=== PATIENT | female | born 1990 | race Caucasian/White ===

== ENCOUNTER 2017-01-01 01:44 | Emergency (ER) | payer OTHER ==
[~2017-01-01] VITALS: Ht 177.8 cm; Wt 124.1 kg
[~2017-01-01 01:44] MED LIST: CALC500C3 PO; DOXY30TA; FERR325T51 PO; MTR600X PO; ONDA4TAB46 PO; OXYC5TAB PO; PRENTAB26 PO
[2017-01-01 01:50] VITALS: BP 114/80; PULSE 92; TEMP 36.8; O2SAT 97; Ht 177.8 cm; Wt 124.1 kg
[2017-01-01] MEDS ORDERED: CLAR500T3 PO (02:09)
[2017-01-01] MEDS ORDERED: OXYCODONE IR HOME PACK PO ONE (02:15)
[2017-01-01] MEDS ORDERED: CLARITHROMYCIN 500 MG TAB PO ONE (02:15)
--- NOTE | 2017-01-01 03:34 | EMERGENCY ROOM VISIT NOTE ---
History First contact with patient: 01:55 Chief Complaint: EAR PAIN Stated Complaint: LEFT EAR PAIN/DRAINAGE History of Present Illness The patient is a 26 year old female who presents to the Emergency Room with complaints of left ear pain with fullness is a cold symptoms for the past week. Patient is breast-feeding a 8 months old. Patient denies chest pain, dyspnea , sore throat, abdominal pain, neck stiffness, lightheadedness or dizziness. She is tolerate by mouth fluids and food. Review of Systems See HPI for pertinent positives & negatives. A total of 10 systems reviewed and were otherwise negative. Past Medical/Surgical History Medical Problems: (1) 29 weeks gestation of (2) Bronchitis (3) Gestation period, 37 weeks (4) Lightheaded (5) Lightheaded (6) Migraine (7) Migraine (8) Migraine (9) Nausea/vomiting in (10) Normal labor and delivery (11) Pelvic pain in , antepartum (12) Pneumonia (13) (14) uterine contractions in third trimester, antepartum (15) Sciatic nerve pain (16) Symptoms of dehydration (17) Twin gestation in third trimester (18) Twins Surgical Problems: (1) H/O wisdom tooth extraction (2) Tonsillectomy Family History Diabetes mellitus Hypertension Social History Smoking Status: Former Smoker Alcohol Use: none Drug Use: none Marital Status: single, in relationship Housing Status: lives with significant other Occupation Status: employed Current/Historical Medications Scheduled Clarithromycin (Biaxin), 1 TAB PO BID Allergies Coded Allergies: Cephalosporins (Verified Allergy, Mild, HIVES - TOLERATED KEFLEX BEFORE, ) Amoxicillin (Verified Allergy, Unknown, HIVES, 01/01/17) Penicillins (Verified Allergy, Unknown, HIVES, 01/01/17) Propranolol (Verified Allergy, Unknown, SWELLING OF THROAT, 01/01/17) Physical Exam Vital Signs Date Time Temp Pulse Resp B/P Pulse Ox O2 Delivery O2 Flow Rate FiO2 01/01/17 01:50 36.8 92 16 114/80 97 Room Air Pain Rating (0-10): 0 Physical Exam VITALS: Vitals are noted on the nurse's note and reviewed by myself. Vital signs stable. GENERAL: Pleasant female, in no acute distress, nondiaphoretic, well-developed well-nourished. SKIN: The skin was without rashes, erythema, edema, or bruising. There is no tenting of the skin. Capillary reflex less than 2 seconds. HEAD: Normocephalic atraumatic. EARS: Left tympanic membrane bulging consistent with otitis media, right External auditory canals clear, tympanic membranes pearly dueñas without erythema or effusion no mastoid tenderness bilaterally. EYES: Pupils equal round and reactive to light and accommodation. Conjunctivae without injection, sclerae without icterus. Extraocular movements intact. NOSE: Patent, turbinates without inflammation or discharge. No sinus tenderness. MOUTH: Mucous membranes moist. Pharynx without erythema or exudate. Uvula midline. Airway patent. Tongue does not deviate. NECK: Supple without nuchal rigidity. No lymphadenopathy. No thyromegaly. Cervical spine is nontender. No JVD. HEART: Regular rate and rhythm without murmurs gallops or rubs. LUNGS: Clear to auscultation bilaterally without wheezes, rales or rhonchi. No dullness to percussion. No retractions or accessory muscle use. ABDOMEN: Positive bowel sounds x 4. Normal tympanic percussion. Soft, nontender, without masses or organomegaly. Lynne sign negative. No guarding or rebound tenderness. MUSCULOSKELETAL: No muscle atrophy, erythema, or edema noted. NEURO: Patient was alert and oriented to person place and time. Normal sensation to light and sharp touch. No focal neurological deficits. Medical Decision & Procedures Medications Administered Medications (Trade) Dose Ordered Sig/Giancarlo Route Start Time Stop Time Status Last Admin Dose Admin Oxycodone HCl (Roxicodone Immediate Rel 5MG Home Pack) 1 homepack UD ONCE PO 01/01/17 02:15 01/01/17 02:16 DC 01/01/17 02:14 1 HOMEPACK Clarithromycin (Biaxin Tab) 1,000 mg NOW ONCE PO 01/01/17 02:15 01/01/17 02:16 DC 01/01/17 02:13 1,000 MG ED Course Prior records reviewed and summarized as above. Triage Nursing notes reviewed. The patient's history was concerning for cold symptoms with ear pain. Differential diagnosis: Etiologies such as sinusitis, otitis, pharyngitis, pneumonia, meningitis, mastoiditis, influenza as well as others were entertained.. Physical examination: The physical examination was consistent with otitis ER treatment provided: Clarithromycin On reassessment the patient felt better. Diagnostics interpreted by me: Deferred Consultation: A consultation was placed with the pharmacist, Marleen. The case was discussed and diagnostics were reviewed. She states it is safe to prescribe clarithromycin to the mother as less than 1% of this is transmitted to the breast milk. This appears to be otitis. Patient was started on antibiotics. She is advised to follow-up with family care in a few days or here in the ER sooner for high fevers, lethargy, neck stiffness, confusion, worsening signs or symptoms or as needed. Patient no signs of mastoiditis or meningitis on exam. She is well- appearing. By the evaluation outlined above emergent etiologies such as PNA, mastoiditis as well as others were deemed relatively unlikely. The pt informed about the findings as listed above. All questions were answered and pleased with the treatment. Return instructions were outlined and the patient was discharged in stable condition. Outpatient prescription management: Clarithromycin Referral: The patient was referred back to primary care physician for follow-up in 2 to 3 days for a recheck of the current condition. Medical Decision As above Impression Primary Impression: Left otitis media Departure Information Dispostion Home / Self-Care Condition GOOD Prescriptions Clarithromycin (BIAXIN) 500 Mg Tab 1 TAB PO BID for 10 Days, #20 TAB Prov: Savanna Patel ., GABBIE 01/01/17 Forms WORK / SCHOOL INSTRUCTIONS, HOME CARE DOCUMENTATION FORM, IMPORTANT VISIT INFORMATION Patient Instructions My [facility], ED Otitis Media Abx Tx Additional Instructions Clarithromycin 500 m tablet twice a day for 10 days.Any medication can cause an allergic reaction, stop the pills immediately and return to the ER for rash, hives, breathing difficulties, or swelling. Oxycodone (OxyIR) 5mg: Take 1-2 pills every four hours for breakthrough pain. Avoid alcohol, operating machinery or dangerous equipment, working on ladders or roofs, DRIVING, or situations where being under the influence may be dangerous. It is recommended to use an [id number] stool softener such as Colace, 100mg twice daily while taking this medication to avoid constipation. Only take this for severe pain at night. This can make your child sleepy and is transmitted in the breast milk. Acetaminophen(Tylenol) may be used for fever or pain. Use 1000mg every six hours as needed. Avoid using more than 3000mg in a 24 hour period. Rest and drink plenty of fluids. Controlling your fever with Tylenol and Ibuprofen as above will make you feel better. Wash your hands after nose blowing, sneezing, or coughing. Most germs are spread through contact, therefore improper hygiene may result in your close contacts and loved ones becoming ill just like you. Continue current medications. Return to the ER for severe headache, neck stiffness, chest pain, difficulty breathing, fevers, vomiting, worsening of your condition, or as needed. Follow up with your primary physician this week for a recheck of your current condition. Problem Qualifiers Primary Impression: Left otitis media Otitis media type: suppurative Chronicity: acute Recurrence: not specified as recurrent Spontaneous tympanic membrane rupture: without spontaneous rupture Qualified Codes: H66.002 - Acute suppurative otitis media without spontaneous rupture of ear drum, left ear
== END 2017-01-01 02:25 | disposition home or self-care (01) ==
LOC: C.EDB 01:45 → C.EDA 02:25
DX: H92.02 Otalgia, left ear (principal); Z87.891 Personal history of nicotine dependence; Z88.0 Allergy status to penicillin; Z88.1 Allergy status to other antibiotic agents; Z88.8 Allergy status to other drugs, medicaments and biological substances

== ENCOUNTER 2017-01-19 21:44 | Emergency (ER) | payer OTHER ==
[~2017-01-19] VITALS: Ht 177.8 cm; Wt 125.0 kg
[2017-01-19 21:47] VITALS: TEMP 37.1; Ht 177.8 cm; Wt 125.0 kg
[2017-01-19] MEDS ORDERED: IBUPROFEN 600 MG TAB PO STA (21:54)
--- NOTE | 2017-01-19 21:56 | EMERGENCY ROOM VISIT NOTE ---
ED Visit Note First contact with patient: 21:51 CHIEF COMPLAINT: Ankle pain HISTORY OF PRESENT ILLNESS: This 26-year-old female patient presents to the emergency department ambulatory after sustaining an injury to the left ankle and foot with a twisting, inversion motion when she slipped going down her basement stairs. Complains of moderate swelling and pain. The patient complains of pain along the outside of the ankle. The patient does have pain of the foot. The patient rates the pain as sharp and 8/10. There was no audible pop. The patient is non-able to bear weight on the foot. Constant pain , worse with movement, weight bearing, and the dependent position. No knee pain , the patient is able to move their toes. No numbness or weakness of the foot, no laceration. The patient has had a previous injury to this ankle. The patient has taken nothing for the pain. The patient denies any other injury. REVIEW OF SYSTEMS: A 6 system review of systems was completed with positives and pertinent negatives listed in the HPI. ALLERGIES: Amoxicillin, cephalosporins, propanolol MEDICATIONS: Patient denies PMH: Patient denies SOCIAL HISTORY: The patient does not smoke. She lives locally PHYSICAL EXAM: Vital Signs: Reviewed Nurse's notes, vital signs stable. GENERAL : This is a 26-year-old female, no acute distress, but appears in pain, well- developed, well-nourished. MENTAL STATUS: Alert, oriented to person place and time, and cooperative. MUSCULOSKELETAL: The left ankle is swollen and tender over the lateral malleolus, but the skin is intact and there is no ligamentous instability. There is moderate fifth metatarsal tenderness. There is no tenderness over the rest of the foot. There is no calf or tibia/fibular tenderness. There is no visual deformity. The foot and toes are warm and well- perfused. Dorsalis pedis pulse 2+. Sensation to pain and light touch is intact. Capillary refill less than 2 seconds. EMERGENCY DEPARTMENT COURSE: I examined the patient. She was given 600 mg oral ibuprofen. X-rays of the left foot and ankle were reviewed by myself and read by radiology and reveal no fracture or dislocation. A postop shoe splint and Brian wrap were applied to the ankle under my direction and the position was satisfactory. Neurovascular status was rechecked and intact. The patient was instructed on the use of crutches. The patient was discharged home in good condition. LEFT ANKLE 3 VIEWS CLINICAL HISTORY: Fall with left ankle pain. FINDINGS: 3 views of the left ankle are compared to study dated 08/15/2008. The skeletal structures are well mineralized. No fracture is seen. The ankle mortise is intact. There is no joint effusion. The overlying soft tissues are within normal limits. IMPRESSION: Unremarkable radiographic assessment of the left ankle. LEFT FOOT 3 VIEWS CLINICAL HISTORY: Fall with left foot pain. FINDINGS: 3 views of left foot are compared to study dated 03/19/2015. The skeletal structures are well mineralized. No fracture is seen. The joint spaces of the foot are well-maintained. The overlying soft tissues are within normal limits. IMPRESSION: Unremarkable radiographic assessment of the left foot. Problem List Medical Problems: (1) 29 weeks gestation of Status: Resolved (2) Bronchitis Status: Resolved (3) Gestation period, 37 weeks Status: Resolved (4) Lightheaded Status: Resolved (5) Lightheaded Status: Resolved (6) Migraine Status: Chronic (7) Migraine Status: Resolved (8) Migraine Status: Resolved (9) Nausea/vomiting in Status: Resolved (10) Normal labor and delivery Status: Resolved (11) Pelvic pain in , antepartum Status: Resolved (12) Pneumonia Status: Resolved (13) Status: Resolved (14) Sciatic nerve pain Status: Resolved (15) Symptoms of dehydration Status: Resolved Surgical Problems: (1) H/O wisdom tooth extraction Status: Resolved (2) Tonsillectomy Status: Resolved Current/Historical Medications No Active Prescriptions or Reported Meds Allergies Coded Allergies: Cephalosporins (Verified Allergy, Mild, HIVES - TOLERATED KEFLEX BEFORE, ) Amoxicillin (Verified Allergy, Unknown, HIVES, 01/01/17) Penicillins (Verified Allergy, Unknown, HIVES, 01/01/17) Propranolol (Verified Allergy, Unknown, SWELLING OF THROAT, 01/01/17) Vital Signs Date Time Temp Pulse Resp B/P Pulse Ox O2 Delivery O2 Flow Rate FiO2 01/19/17 22:41 86 18 146/75 98 01/19/17 21:47 37.1 90 16 141/92 99 Room Air Medications Administered Medications (Trade) Dose Ordered Sig/Giancarlo Route Start Time Stop Time Status Last Admin Dose Admin Ibuprofen (Motrin Tab) 600 mg NOW STAT PO 01/19/17 21:54 01/19/17 21:55 DC 01/19/17 22:12 600 MG Departure Information Impression Primary Impression: Foot sprain Additional Impression: Ankle sprain Dispostion Home / Self-Care Condition GOOD Prescriptions No Active Prescriptions or Reported Meds Referrals No Doctor, Assigned (PCP) Chencho Santamaria D.O. Patient Instructions Ankle Sprain, ED Sprain Foot, My [facility] Additional Instructions Ice and elevate ankle for swelling and pain. Use your ankle support, post op shoe and crutches for 2 days then until you can walk without limping. Ibuprofen 600 mg and Tylenol 1000 mg every 6 hrs for pain. No more than 4 g of Tylenol in 24 hours. If ankle has not improved within 5-7 days, follow-up family doctor or orthopedic surgeon for further reevaluation. Problem Qualifiers Primary Impression: Foot sprain Encounter type: initial encounter Laterality: left Qualified Codes: S93.602A - Unspecified sprain of left foot, initial encounter Additional Impression: Ankle sprain Encounter type: initial encounter Involved ligament of ankle: unspecified ligament Laterality: left Qualified Codes: S93.402A - Sprain of unspecified ligament of left ankle, initial encounter
--- NOTE | 2017-01-19 22:19 | DIAGNOSTIC IMAGING REPORT ---
LEFT FOOT 3 VIEWS CLINICAL HISTORY: Fall with left foot pain. FINDINGS: 3 views of left foot are compared to study dated 03/19/2015. The skeletal structures are well mineralized. No fracture is seen. The joint spaces of the foot are well-maintained. The overlying soft tissues are within normal limits. IMPRESSION: Unremarkable radiographic assessment of the left foot. Electronically signed by: Daryn Mora M.D. 01/19/2017 10:18 PM Dictated Date/Time: 01/19/2017 10:16 PM
--- NOTE | 2017-01-19 22:20 | DIAGNOSTIC IMAGING REPORT ---
LEFT ANKLE 3 VIEWS CLINICAL HISTORY: Fall with left ankle pain. FINDINGS: 3 views of the left ankle are compared to study dated 08/15/2008. The skeletal structures are well mineralized. No fracture is seen. The ankle mortise is intact. There is no joint effusion. The overlying soft tissues are within normal limits. IMPRESSION: Unremarkable radiographic assessment of the left ankle. Electronically signed by: Daryn Mora M.D. 01/19/2017 10:19 PM Dictated Date/Time: 01/19/2017 10:18 PM
[2017-01-19 22:41] VITALS: BP 146/75; PULSE 86; O2SAT 98
== END 2017-01-19 22:42 | disposition home or self-care (01) ==
LOC: C.EDB 21:45 → C.EDD 22:42
DX: S93.602A Unspecified sprain of left foot, initial encounter (principal); S93.402A Sprain of unspecified ligament of left ankle, initial encounter; X50.1XXA Overexertion from prolonged static or awkward postures, initial encounter; W18.43XA Slipping, tripping and stumbling without falling due to stepping from one level to another, initial encounter; Z87.01 Personal history of pneumonia (recurrent); Z90.89 Acquired absence of other organs; Z98.818 Other dental procedure status

== ENCOUNTER 2017-03-15 23:00 | Emergency (ER) | payer OTHER ==
[~2017-03-15] VITALS: Ht 180.3 cm; Wt 125.4 kg
[2017-03-15 23:02] VITALS: TEMP 36.6; Ht 180.3 cm; Wt 125.4 kg
[2017-03-15] MEDS ORDERED: KETOROLAC TROMETHAMINE 60 MG/2 ML VIAL IM STA (23:24)
[2017-03-16 00:02] LABS: URINE APPEARANCE CLEAR (CLEAR); URINE BILIRUBIN NEG (NEG); URINE COLOR ORANGE; URINE EPITHELIAL CELL AUTO 20-30 /lpf (0-5); URINE NITRITE NEG (NEG); URINE PH 6.5 (4.5-7.5); URINE SPECIFIC GRAVITY 1.005 (1.000-1.030); UROBILINOGEN NEG (NEG); ZZUR CULT IF INDIC CLEAN CATCH YES
[2017-03-16 00:04] LABS: MANUAL MICROSCOPIC REQUIRED? NO; REVIEW REQ? YES
[2017-03-16 01:58] VITALS: BP 99/66; PULSE 70; O2SAT 99
--- NOTE | 2017-03-16 06:27 | DIAGNOSTIC IMAGING REPORT ---
EXAMINATION: PELVIC ULTRASOUND (transabdominal and endovaginal scanning) CLINICAL HISTORY: Vaginal bleeding and cramping. COMPARISON STUDY: None FINDINGS: The uterus measured 9.3 x 4.5 x 5.1 cm. The endometrial stripe measured 17 mm. An IUD is visualized.. The right ovary measured 42 x 26 x 35 mm.. The left ovary measured 51 x 26 x 29 mm.. Multiple peripheral ovarian follicles are visualized bilaterally. This a nonspecific appearance but this finding has been reported in polycystic ovarian syndrome. There is no ultrasonographic evidence of ovarian torsion. It should be noted that ovarian torsion can be present with normal Doppler ultrasonographic findings. There was no evidence of pathologic free pelvic fluid. IMPRESSION: 1. IUD within the uterus 2. Multiple peripheral ovarian follicles. Electronically signed by: Rito Leal M.D. 03/16/2017 6:26 AM Dictated Date/Time: 03/16/2017 6:24 AM
--- NOTE | 2017-03-16 07:48 | EMERGENCY ROOM VISIT NOTE ---
History First contact with patient: 23:11 Chief Complaint: ED VAG BLEEDING Stated Complaint: EXCESSIVE MENSTRAL BLEEDING, CRAMPS History of Present Illness The patient is a 26 year old female who presents to the Emergency Room with complaints of vaginal bleeding that has worsened today. The patient states that she has been spotting for the past 6 or 7 days, and now has more significant bleeding. She states that she has gone through 2 tampons and 2 pads over the past 2 hours. She does have some lower abdominal cramping. The patient has an IUD and is concerned that maybe misplaced. She does not believe that she is because of the IUD. She has not had fever or chills. She should be on her menses, but this feels different from normal. She rates her discomfort a 4/10. Review of Systems More than 10 systems were reviewed and otherwise negative with the exception of history of present illness. Past Medical/Surgical History Medical Problems: (1) 29 weeks gestation of (2) Bronchitis (3) Gestation period, 37 weeks (4) Lightheaded (5) Lightheaded (6) Migraine (7) Migraine (8) Migraine (9) Nausea/vomiting in (10) Normal labor and delivery (11) Pelvic pain in , antepartum (12) Pneumonia (13) (14) uterine contractions in third trimester, antepartum (15) Sciatic nerve pain (16) Symptoms of dehydration (17) Twin gestation in third trimester (18) Twins Surgical Problems: (1) H/O wisdom tooth extraction (2) Tonsillectomy Family History Diabetes mellitus Hypertension Social History Smoking Status: Former Smoker Alcohol Use: none Drug Use: none Marital Status: single, in relationship Housing Status: lives with significant other Occupation Status: employed Current/Historical Medications No Active Prescriptions or Reported Meds Allergies Coded Allergies: Cephalosporins (Verified Allergy, Mild, HIVES - TOLERATED KEFLEX BEFORE, ) Amoxicillin (Verified Allergy, Unknown, HIVES, 03/15/17) Penicillins (Verified Allergy, Unknown, HIVES, 03/15/17) Propranolol (Verified Allergy, Unknown, SWELLING OF THROAT, 03/15/17) Physical Exam Vital Signs Date Time Temp Pulse Resp B/P Pulse Ox O2 Delivery O2 Flow Rate FiO2 03/16/17 01:58 70 18 99/66 99 03/16/17 00:31 50 16 127/66 99 Room Air 5/6/17 23:02 36.6 73 16 138/95 95 Room Air Pain Rating (0-10): 0 Physical Exam VITALS: Vitals are noted on the nurse's note and reviewed by myself. Vital signs stable. GENERAL: Well-developed, well-nourished, white female, who is in no acute distress and resting comfortably. Patient is cooperative with the examination. HEAD: Normocephalic atraumatic. HEART: Regular rate and rhythm without murmurs gallops or rubs. LUNGS: Clear to auscultation bilaterally without wheezes, rales or rhonchi. No retractions or accessory muscle use. ABDOMEN: Positive normal bowel sounds x 4. Soft, nontender, without masses or organomegaly. No guarding or rebound tenderness. MUSCULOSKELETAL: No muscle atrophy, erythema, or edema noted. Full range of motion without joint tenderness in all extremities. Medical Decision & Procedures ER Provider Diagnostic Interpretation: EXAMINATION: PELVIC ULTRASOUND (transabdominal and endovaginal scanning) CLINICAL HISTORY: Vaginal bleeding and cramping. COMPARISON STUDY: None FINDINGS: The uterus measured 9.3 x 4.5 x 5.1 cm. The endometrial stripe measured 17 mm. An IUD is visualized.. The right ovary measured 42 x 26 x 35 mm.. The left ovary measured 51 x 26 x 29 mm.. Multiple peripheral ovarian follicles are visualized bilaterally. This a nonspecific appearance but this finding has been reported in polycystic ovarian syndrome. There is no ultrasonographic evidence of ovarian torsion. It should be noted that ovarian torsion can be present with normal Doppler ultrasonographic findings. There was no evidence of pathologic free pelvic fluid. IMPRESSION: 1. IUD within the uterus 2. Multiple peripheral ovarian follicles. Laboratory Results Test 03/15/17 23:37 Urine Color ORANGE Urine Appearance CLEAR (CLEAR) Urine pH 6.5 (4.5-7.5) Urine Specific [place] 1.005 (1.000-1.030) Urine Protein NEG (NEG) Urine Glucose (UA) NEG (NEG) Urine Ketones NEG (NEG) Urine Occult Blood 3+ (NEG) Urine Nitrite NEG (NEG) Urine Bilirubin NEG (NEG) Urine Urobilinogen NEG (NEG) Urine Leukocyte Esterase NEG (NEG) Urine WBC (Auto) 1-5 /hpf (0-5) Urine RBC (Auto) >30 /hpf (0-4) Urine Hyaline Casts (Auto) 0 /lpf (0-5) Urine Epithelial Cells (Auto) 20-30 /lpf (0-5) Urine Bacteria (Auto) NEG (NEG) Urine Yeast (Auto) (NONE PRSENT) Urine Test NEG (NEG) Medications Administered Medications (Trade) Dose Ordered Sig/Giancarlo Route Start Time Stop Time Status Last Admin Dose Admin Ketorolac Tromethamine (Toradol Inj) 60 mg NOW STAT IM 03/15/17 23:24 03/15/17 23:25 DC 03/15/17 23:45 60 MG ED Course Physical exam and history were performed. Nursing notes and EMR were reviewed. Patient appears to have vaginal bleeding that is more severe over the past 2 hours. She is not taking anything at home for her discomfort, and is concerned about her ID. Urine was collected, and was negative. The patient was given 60 mg IM Toradol. A pelvic ultrasound was performed and does show IUD an anatomic position. There is no other significant findings on ultrasound. Overall the patient appears well for discharge home. I suspect that her symptoms are related to a heavier than normal menses. The patient should follow with her VOICE AND DATA TECHNICIAN for further care and management. She was otherwise invited back to the ER with any new, worsening, or concerning symptoms. The chart was completed utilizing [employer] Voice Recognition Software. Grammatical errors, random word insertions, pronoun errors, and incomplete sentences are an occasional consequence of this system due to software limitations, ambient noise, and hardware issues. Any formal questions or concerns about the content, text, or information contained within the body of this dictation should be directly addressed to the provider for clarification. . Medical Decision Differential diagnosis: Etiologies such as ectopic , dysfunction uterine bleeding, bleeding dyscrasia, trauma, infection, as well as others were entertained. Impression Primary Impression: Vaginal bleeding Departure Information Dispostion Home / Self-Care Condition GOOD Prescriptions No Active Prescriptions or Reported Meds Forms HOME CARE DOCUMENTATION FORM, IMPORTANT VISIT INFORMATION Patient Instructions My [facility] Additional Instructions You were seen and evaluated today on an emergency basis only. This is not a substitute for, or an effort to provide, complete comprehensive medical care. It is not possible to recognize and treat all injuries or illnesses in a single emergency department visit. For this reason it is recommended that you followup with your VOICE AND DATA TECHNICIAN next week for ongoing care and evaluation. For baseline pain relief you may alternate ibuprofen and acetaminophen every 4 hours for pain control. Take 600 mg ibuprofen (Advil) and then 4 hours later take 1000 mg acetaminophen (Tylenol). Do not take more than 3000 mg acetaminophen in a single day. You are welcome to return to the emergency department anytime with new, worsening, or concerning symptoms.
== END 2017-03-16 01:59 | disposition home or self-care (01) ==
LOC: C.EDB 23:01
DX: N93.9 Abnormal uterine and vaginal bleeding, unspecified (principal); Z97.5 Presence of (intrauterine) contraceptive device; Z87.891 Personal history of nicotine dependence; Z90.49 Acquired absence of other specified parts of digestive tract; Z88.0 Allergy status to penicillin; Z88.1 Allergy status to other antibiotic agents; Z88.8 Allergy status to other drugs, medicaments and biological substances; Z83.3 Family history of diabetes mellitus; Z82.49 Family history of ischemic heart disease and other diseases of the circulatory system

== ENCOUNTER → 2018-05-25 | Outpatient (CLI) | payer OTHER ==
--- NOTE | 2018-07-03 08:26 | CODING QUERY NO DIAGNOSIS ---
TREATMENT RENDERED WITHOUT A DIAGNOSIS To promote full compliance with coding requirements relating to patient care, physician participation is requested in all cases of police guard uncertainty. Please assist us with providing a diagnosis/symptom for the test(s) below: A diagnosis/symptom was not documented on your Order. A valid diagnosis/symptom is required to bill all insurances. Please remember that we are unable to code a diagnosis of rule out, probable, possible, questionable, or suspected. Tests that require a diagnosis: DOS: 05/25/18 * CHLAM AND GC RNA DIAGNOSIS: Provider Signature: Date: Thank you Valeri De Paz [employer] Once completed, please kindly fax back to [phone] For questions please call [phone]
== END | disposition home or self-care (01) ==
LOC: C.LABSPEC 17:04 → EDSTATUS 06-25 12:57
PROVIDERS: ATTEND Obstetrics & Gynecology Gynecology
DX: Z11.3 Encounter for screening for infections with a predominantly sexual mode of transmission (principal)

== ENCOUNTER → 2018-05-25 | Outpatient (CLI) | payer OTHER ==
--- NOTE | 2018-07-03 08:29 | CODING QUERY NO DIAGNOSIS ---
TREATMENT RENDERED WITHOUT A DIAGNOSIS To promote full compliance with coding requirements relating to patient care, physician participation is requested in all cases of medical biller/coder uncertainty. Please assist us with providing a diagnosis/symptom for the test(s) below: A diagnosis/symptom was not documented on your Order. A valid diagnosis/symptom is required to bill all insurances. Please remember that we are unable to code a diagnosis of rule out, probable, possible, questionable, or suspected. Tests that require a diagnosis: DOS: 05/25/18 * THINPREP PAP TEST DIAGNOSIS: Provider Signature: Date: Thank you Valeri De Paz [employer] Once completed, please kindly fax back to [phone] For questions please call [phone]
== END | disposition home or self-care (01) ==
LOC: C.PAPS 17:29 → EDSTATUS 06-25 12:46
PROVIDERS: ATTEND Obstetrics & Gynecology Gynecology
DX: Z12.4 Encounter for screening for malignant neoplasm of cervix (principal)

== ENCOUNTER 2023-12-26 18:43 | Inpatient (IN) ==
[2023-12-26] MEDS ORDERED: LIDOCAINE 1% LOCAL 20 ML VIAL INFIL PRN (18:59)
--- NOTE | 2023-12-26 19:06 | History & Physical Report ---
Date of Service December 26, 2023 Assessment & Plan (1) History of section: (2) Active labor at term: Plan: 33-year-old -0-1-3, set of twins, history of prior , presenting with contractions, in active labor and desires TOLAC/, Vital signs stable afebrile, heart rate reassuring, GBS negative, Understands risks and benefits and signed informed consent, Patient desires AROM before epidural, Plan to admit, monitor, labs, IV fluids and then AROM per patient request, All questions were answered. (3) Patient desires vaginal after section (): History of Present Illness Primary Care Provider: Erin Pearson PA-C Patient is a 33-year-old -0-1-3, set of twins, history of prior , desires , at 40 wks of gestation who has been feeling contractions since 4 pm this afternoon. She was in the office on December 24 when her membranes were swiped. Contractions been every 2 to 3 minutes, lasting about 1 minute and very painful. She denies leakage of fluid or vaginal bleeding. She reports good movements. Her has been complicated by, 1. History of prior for twins in 2016, desires TOLAC/, 2. Obesity during , 3. Clomid , 4. history of hyperemesis gravidarum during this , She has signed an informed consent in the office for TOLAC/ versus repeat . She understand the risk of uterine rupture, intra-abdominal bleeding, stress, emergency to save the baby and were scenario demise. We gave her another consent of this hospital with the risks and benefits of both and she signed informed consent and desires to have TOLAC/ . Allergies Allergy/AdvReac Type Severity Reaction Status Date / Time propranolol Allergy Severe SWELLING Verified 07/02/23 12:59 OF THROAT amoxicillin Allergy Intermediate HIVES Verified 07/02/23 12:59 Penicillins Allergy Intermediate HIVES Verified 07/02/23 12:59 Cephalosporins Allergy Mild HIVES - Verified 07/02/23 12:59 TOLERATED KEFLEX BEFORE clindamycin Allergy Mild Rash Verified 12/22/23 17:18 Home Medications Medication Instructions Recorded Confirmed Type vit no.95-ferrous 1 tab PO HS 05/09/23 07/02/23 History fumarate 28 mg-folic acid 800 mcg tablet () montelukast 10 mg tablet 10 mg PO HS 06/09/23 12/22/23 History ondansetron 4 mg disintegrating 4 mg PO Q4H PRN nausea and 06/09/23 12/22/23 Rx tablet vomiting 0 days #10 tabs omeprazole 40 mg capsule,delayed 40 mg PO DAILY 12/22/23 12/22/23 History release sertraline 25 mg tablet (Zoloft) 25 mg PO DAILY 12/22/23 12/22/23 History sertraline 50 mg tablet (Zoloft) 50 mg PO DAILY 12/22/23 12/22/23 History Patient History Medical History GERD (gastroesophageal reflux disease) Surgical History History of section Family History Other Family history non-contributory Social History Smoking Status: Former smoker Second Hand Exposure: No; Do You Dip or Chew Tobacco: No; Hx Alcohol Use: No Hx Substance Use: No Preferred Language: Korean Communication Ability: Effective Visual Impairment: No Limitations Hearing Ability: Normal Landcare Officer Required: No Beliefs That Will Affect Care: None marital status: Current Living Situation: Spouse and Family Current Living Situation Comment: , three children, grandfather Feels Safe at Home: Yes Assistive Devices: None OB History She had primary in 2016 for twins at 38 weeks, no complications, She had a vaginal in 2013, 7 pounds 13 ounce baby, no complications, She had 1 SAB before that. 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 Review of Systems as per Subjective / HPI Physical Exam Constitutional: WD/WN, vitals as above well developed, well nourished, + acute distress (With contractions) and + obese Gastrointestinal (Abdomen): normal bowel sounds, soft, nontender, no hepatosplenomegaly (Gravid) Genitourinary: normal external appearance OB Exam Abdomen: + vertex Manual OB Exam: + cervical dilation 4 cm, + cervical effacement 70% and + station -2 OB Exam Monitor Tracing: + external uterine monitor used and + category I Results & Data Vital Signs (Past 12 Hours) Vital Signs Temp Pulse Resp BP 12/26/23 18:56 90 141/84 H 12/26/23 18:50 16 12/26/23 18:50 36.7 C 16
[2023-12-26 19:23] LABS: Hematocrit (blood only) 40.7 % (37.0-47.0); Hemoglobin 13.9 g/dl (12.0-16.0); Mean Corpuscular Hemoglobin 29.1 pg (25.0-34.0); Mean Corpuscular Hgb Conc 34.2 g/dL (32.0-36.0); Mean Corpuscular Volume 85.1 fL (80.0-100.0); Mean Platelet Volume 10.4 fL (9.4-12.4); Platelet Count 193 K/uL (130-400); RDW Coefficient of Variation 13.4 % (11.5-14.5); RDW Standard Deviation 41.3 fL (36.4-46.3); Red Blood Count 4.78 M/uL (4.20-5.40); White Blood Count 15.07 K/ul (4.8-10.8)
[2023-12-26] MEDS: LACTATED RINGER'S 1,000 ML IV PRN (19:25)
[2023-12-26 19:52] LABS: Albumin Level 3.5 gm/dl (3.4-5.0); Bilirubin,Total 0.4 mg/dl (0.2-1.0); Calcium 9.2 mg/dl (8.6-10.3); Potassium 3.6 mmol/L (3.5-5.1)
[2023-12-26 19:58] LABS: BUN Creatinine Ratio 15.5 (10-20); Creatinine Clr Calc Pharmacy 170.5 ml/min; Est GFR (African American) 131.5 ml/min; Est GFR (Non-African American) 113.5 ml/min; Globulin 3.5 gm/dl (2.5-4.0)
[2023-12-26] MEDS ORDERED: diphenhydrAMINE 50 MG/ML VIAL IV PRN (20:00)
[2023-12-26] MEDS ORDERED: ePHEDrine sulfate 50 MG/ML AMP IV PRN (20:00)
[2023-12-26] MEDS ORDERED: BUPIVACAINE 0.25% PF 30 ML VIAL EPI PRN (20:00)
[2023-12-26] MEDS ORDERED: fentANYL 2 MCG/ML BUPIVacaine 0.125%-NSS 100ML BAG EPI PRN (20:00)
[2023-12-26] MEDS ORDERED: NALOXONE HCL 1 MG in SODIUM CHLORIDE 0.9% 1,000 ML IV PRN (20:00)
[2023-12-26] MEDS ORDERED: NALOXONE HCL 0.4 MG/1 ML VIAL/CARP IV PRN (20:00)
[2023-12-26] MEDS ORDERED: NALBUPHINE HCL 5 MG in SYRINGE 0 ML IV PRN (20:00)
[2023-12-26] MEDS ORDERED: ROPIVACAINE 0.5% PF 5 MG/ML 20 ML VIAL EPI PRN (20:00)
[2023-12-26] MEDS ORDERED: SODIUM CHLORIDE 0.9% PF INJ 10 ML VIAL EPI PRN (20:00)
[2023-12-26] MEDS ORDERED: fentaNYL citrate PF 100 MCG/2 ML VIAL EPI PRN (20:00)
[2023-12-26] MEDS ORDERED: LIDOCAINE 2% MPF LOCAL 5 ML VIAL EPI PRN (20:00)
--- NOTE | 2023-12-26 20:02 | Anesthesiology Consultation ---
Date of Service December 26, 2023 Assessment & Plan Chart Review Chart Review: Patient NOT seen in Pre Admission Testing and Acceptable Risk for Labor Epidural Consults Requested none ASA ASA3 Proposed Anesthesia Anesthesia Type: Labor Epidural Risk / Benefits Reviewed With: PT / POA / Parent / Guardian, Accepts Plan and Informed Consent Obtained History Height/Weight Height: 5 ft 10 in Weight: 132.449 kg Allergies Allergy/AdvReac Type Severity Reaction Status Date / Time propranolol Allergy Severe SWELLING Verified 12/26/23 19:16 OF THROAT amoxicillin Allergy Intermediate HIVES Verified 12/26/23 19:16 Penicillins Allergy Intermediate HIVES Verified 12/26/23 19:16 Cephalosporins Allergy Mild HIVES - Verified 12/26/23 19:16 TOLERATED KEFLEX BEFORE clindamycin Allergy Mild Rash Verified 12/26/23 19:16 Medications Home Medications Medication Instructions Recorded Confirmed Last Taken vit no.95-ferrous 1 tab PO HS 05/09/23 12/26/23 12/25/23 20:00 fumarate 28 mg-folic acid 800 mcg tablet () montelukast 10 mg tablet 10 mg PO HS 06/09/23 12/26/23 12/25/23 20:00 ondansetron 4 mg disintegrating 4 mg PO Q4H PRN nausea and 06/09/23 12/26/23 12/20/23 tablet vomiting 0 days #10 tabs omeprazole 40 mg capsule,delayed 40 mg PO DAILY 12/22/23 12/26/23 12/25/23 20:00 release sertraline 25 mg tablet (Zoloft) 25 mg PO DAILY 12/22/23 12/26/23 12/26/23 07:00 sertraline 50 mg tablet (Zoloft) 50 mg PO DAILY 12/22/23 12/26/23 12/26/23 07:00 Active Medications Generic Name Dose Route Start Last Admin Trade Name Freq PRN Reason Stop Dose Admin Lactated Ringer's 1,000 mls @ 150 mls/hr 12/26/23 18:59 12/26/23 20:22 Lr IV 12/28/23 18:58 999 mls/hr .[id number] PRN Administration L&D Protocol Protocol NPO Date Last Intake of Fluids: 12/26/23 Time Last Intake of Fluids: 19:00 Date Last Intake of Solids: 12/26/23 Time Last Intake of Solids: 17:30 Past Medical History Medical History GERD (gastroesophageal reflux disease) Exercise / Class Metabolic Activity II 4-5 Yardwork/Stairs/Walk up hill Past Family History Family History Other Family history non-contributory Past Surgical History Surgical History History of section Past Anesthesia History No Hx of Anesthesia Complications and No Family Hx of Anesthesia Complications History of PONV History of PONV and Hx of Motion Sickness Social History Smoking Status: Former smoker Do You Dip or Chew Tobacco: No Hx Alcohol Use: No Hx Substance Use: No substance use type: does not use Review of Systems ROS Unobtainable: All systems reviewed & are unremarkable except as noted in HPI & below Physical Exam Vital Signs Last Vital Signs Temp 36.7 C 12/26/23 19:29 Pulse 90 12/26/23 19:29 Resp 20 12/26/23 19:29 BP 141/84 H 12/26/23 19:29 ENMT Mouth: no TMJ abnormality Thyromental Distance: > or= 3.5 Finger Breadths Mallampati Class: II Neck normal visual inspection and trachea midline; neck extension not limited Respiratory normal respiratory effort Auscultation: lungs clear to auscultation bilaterally Cardiovascular Rate/Rhythm: regular rate and regular rhythm Heart Sounds: no murmur Musculoskeletal Spine: normal cervical ROM Extremities: full ROM of extremities Neurologic moves all extremities Psychiatric Orientation: alert and oriented x 3 Testing Laboratory Results 12/26/23 19:12 12/26/23 19:12
[2023-12-26] MEDS: BUPIVACAINE 0.25% PF 30 ML VIAL ONE (20:23)
[2023-12-26] MEDS: fentaNYL citrate PF 100 MCG/2 ML VIAL ONE (20:23)
[2023-12-26] MEDS: LIDOCAINE 2%/EPINEPHRINE 1:200,000 20 ML PF ONE (20:23)
[2023-12-26] MEDS: fentANYL 2 MCG/ML BUPIVacaine 0.125%-NSS 100ML BAG ONE (20:25)
[2023-12-26] MEDS: SODIUM CHLORIDE 0.9% PF INJ 10 ML VIAL ONE (20:38)
[2023-12-26] MEDS ORDERED: ONDANSETRON INJ 2 MG/ML 2 ML VIAL IV PRN (20:56)
[2023-12-26] MEDS: ONDANSETRON INJ 2 MG/ML 2 ML VIAL ONE (21:15)
[2023-12-26] MEDS: OXYTOCIN 30 UNITS/NSS 30 UNITS/500 ML BAG IV PRN (21:20)
--- NOTE | 2023-12-26 21:57 | Obstetrical Progress Note ---
Date of Service December 26, 2023 Assessment & Plan Admission and Anticipated Discharge Date Admission Date: December 26, 2023 Subjective Patient is comfortable now. Received epidural. VE; unchanged ctxs spaced out to q 6-8 min FHR categ I Plan to augment with low dose Oxytocin and monitor closely. Results & Data Vital Signs (Past 12 Hours) Vital Signs Temp Pulse Resp BP Pulse Ox 12/26/23 21:52 82 100/59 L 12/26/23 21:50 89 99 12/26/23 21:45 84 99 12/26/23 21:40 88 100 12/26/23 21:37 81 91/55 L 12/26/23 21:35 83 99 12/26/23 21:30 89 100 12/26/23 21:25 80 100 12/26/23 21:22 86 128/86 12/26/23 21:20 85 100 12/26/23 21:15 79 99 12/26/23 21:10 100 H 99 12/26/23 21:07 87 126/74 12/26/23 21:05 85 99 12/26/23 21:00 91 H 126/73 98 12/26/23 20:55 103 H 100 12/26/23 20:53 92 H 122/70 12/26/23 20:50 97 H 99 12/26/23 20:45 91 H 100 12/26/23 20:40 93 H 99 12/26/23 20:37 90 120/69 12/26/23 20:35 92 H 124/70 98 12/26/23 20:33 90 123/73 12/26/23 20:31 92 H 119/65 12/26/23 20:30 36.7 C 101 H 18 99 12/26/23 20:29 90 127/67 12/26/23 20:27 93 H 129/82 12/26/23 20:25 91 H 124/78 97 12/26/23 20:23 86 118/72 12/26/23 20:22 84 122/79 12/26/23 20:20 82 98 12/26/23 20:15 85 97 12/26/23 20:10 89 97 12/26/23 20:05 88 98 12/26/23 19:29 36.7 C 90 20 141/84 H 12/26/23 18:56 90 141/84 H 12/26/23 18:50 16 12/26/23 18:50 36.7 C 16
[2023-12-26] MEDS: fentaNYL citrate PF 100 MCG/2 ML VIAL EPI STA (22:25)
[2023-12-26] MEDS: BUPIVACAINE 0.25% PF 30 ML VIAL EPI STA (22:25)
[2023-12-26] MEDS: SODIUM CHLORIDE 0.9% PF INJ 10 ML VIAL EPI STA (22:26)
[2023-12-26] MEDS: LIDOCAINE 2%/EPINEPHRINE 1:200,000 20 ML PF EPI STA (22:26)
--- NOTE | 2023-12-26 23:39 | Obstetrical Progress Note ---
Date of Service December 26, 2023 Assessment & Plan Admission and Anticipated Discharge Date Admission Date: December 26, 2023 Subjective Patient is reevaluated. Feels well, no complaints VSS Afebrile FHR categ I VE; 5/60%-1, only change is in station, cler fluid leaking [place] ctxs still irregular, Oxytocin is at 5 miu/min Continue to monitor closely Results & Data Vital Signs (Past 12 Hours) Vital Signs Temp Pulse Resp BP Pulse Ox 12/26/23 23:37 117/68 12/26/23 23:35 71 100 12/26/23 23:30 73 100 12/26/23 23:25 76 100 12/26/23 23:22 74 112/55 L 12/26/23 23:20 79 99 12/26/23 23:15 74 98 12/26/23 23:10 73 99 12/26/23 23:08 73 114/72 12/26/23 23:05 76 100 12/26/23 23:00 72 100 12/26/23 22:55 79 98 12/26/23 22:52 74 118/72 12/26/23 22:50 75 100 12/26/23 22:45 73 99 12/26/23 22:40 78 99 12/26/23 22:38 75 115/68 12/26/23 22:35 77 100 12/26/23 22:30 85 99 12/26/23 22:25 76 100 12/26/23 22:22 78 116/71 12/26/23 22:20 79 100 12/26/23 22:15 75 100 12/26/23 22:10 84 98 12/26/23 22:09 18 12/26/23 22:09 36.4 C L 75 18 117/67 12/26/23 22:05 78 98 12/26/23 22:00 77 99 12/26/23 21:55 77 99 12/26/23 21:52 82 100/59 L 12/26/23 21:50 89 99 12/26/23 21:45 84 99 12/26/23 21:40 88 100 12/26/23 21:37 81 91/55 L 12/26/23 21:35 83 99 12/26/23 21:30 89 100 12/26/23 21:25 80 100 12/26/23 21:22 86 128/86 12/26/23 21:20 85 100 12/26/23 21:15 79 99 12/26/23 21:10 100 H 99 12/26/23 21:07 87 126/74 12/26/23 21:05 85 99 12/26/23 21:00 91 H 126/73 98 12/26/23 20:55 103 H 100 12/26/23 20:53 92 H 122/70 12/26/23 20:50 97 H 99 12/26/23 20:45 91 H 100 12/26/23 20:40 93 H 99 12/26/23 20:37 90 120/69 12/26/23 20:35 92 H 124/70 98 12/26/23 20:33 90 123/73 12/26/23 20:31 92 H 119/65 12/26/23 20:30 36.7 C 101 H 18 99 12/26/23 20:29 90 127/67 12/26/23 20:27 93 H 129/82 12/26/23 20:25 91 H 124/78 97 12/26/23 20:23 86 118/72 12/26/23 20:22 84 122/79 12/26/23 20:20 82 98 12/26/23 20:15 85 97 12/26/23 20:10 89 97 12/26/23 20:05 88 98 12/26/23 19:29 36.7 C 90 20 141/84 H 12/26/23 18:56 90 141/84 H 12/26/23 18:50 16 12/26/23 18:50 36.7 C 16
[2023-12-27] MEDS ORDERED: HYDROCORTISONE ACETATE 25 MG SUPP PR PRN (03:03)
[2023-12-27] MEDS ORDERED: bisacodyL 10 MG SUPP PR PRN (03:03)
[2023-12-27] MEDS ORDERED: oxyCODONE/ACETAMINOPHEN 5mg/325mg TAB PO PRN (03:03)
[2023-12-27] MEDS ORDERED: OXYTOCIN 30 UNITS/NSS 30 UNITS/500 ML BAG IV PRN (03:03)
--- NOTE | 2023-12-27 03:07 | Delivery Summary ---
Vaginal Delivery Summary Date of Service December 27, 2023 Vaginal Delivery Summary Patient was found to be fully dilated and desires to push. She pushed for few min involuntarily and the head was . It was delivered with one time push and then shoulders with minimal traction at 02:46 without difficulty. The baby was handed off to the mother. The cord was clampedx2 and cut at 1 minute. The vagina and perineum were checked and found to have 1st degree perineal laceration. It was repaired with 2/0 vicryl. The placenta was delivered spontaneously as intact and complete. The uterus was explored and found to be empty. EBL was 250 ml. The fundus was firm The baby was a viable female infant, Apgars 7/8, the weight is pending The mother and the baby tolerated the procedure well. No complications happened and I was present during whole procedure.
[2023-12-27] MEDS: miSOPROStoL 200 MCG TAB PR ONE (03:11)
[2023-12-27] MEDS: DIPHTHER/TETAN/PERTUS Vaccine (Tdap, Adol/Adult) 0.5mL IM ONE (03:15)
[2023-12-27] MEDS: ePHEDrine sulfate 50 MG/ML AMP ONE (03:27)
[2023-12-27] MEDS: METHYLERGONOVINE MALEATE 0.2 MG TAB PO SCH (03:56)
[2023-12-27] MEDS: MEASLES, MUMPS & RUBELLA VIRUS VACCINE (MMR) VIAL SQ ONE (03:56)
[2023-12-27] MEDS: OXYTOCIN 30 UNITS/NSS 30 UNITS/500 ML BAG IV PRN (04:24)
[2023-12-27] MEDS: DOCUSATE SODIUM 100 MG CAP PO SCH (07:39)
[2023-12-27] MEDS: IBUPROFEN 600 MG TAB PO PRN (07:39)
[2023-12-27] MEDS: PRENATAL VITAMIN 1 TAB PO SCH ×2 (07:39→21:21)
[2023-12-27] MEDS: FERROUS SULFATE 325 MG TAB PO SCH (07:39)
[2023-12-27] MEDS: BENZOCAINE 20% SPRY 85 APPLN/85 GM CAN EXT PRN (07:40)
--- NOTE | 2023-12-27 07:52 | Anesthesia Procedure Note ---
Date of Service December 27, 2023 Anesthesia Post Epidural Note Vital Signs Vital Signs: Temp Pulse Resp BP Pulse Ox 98.8 F 87 18 133/78 88 L 12/27/23 06:00 12/27/23 06:00 12/27/23 06:00 12/27/23 06:00 12/27/23 03:17 Pain Intensity Lower Abdomen: Pain Intensity: 0 Notes Mental Status: alert / awake / arousable and participated in evaluation Nausea / Vomiting: adequately controlled Pain: adequately controlled Airway Patency, RR, SpO2: stable & adequate BP & HR: stable & adequate Hydration State: stable & adequate Neuraxial Anesthesia: was administered and sensory block is resolving Anesthetic Complications: no major complications apparent and Pt Satisfied with anesthetic care Epidural: Removed without complications and With tip intact
[2023-12-27] MEDS ORDERED: ONDANSETRON 4 MG OD TAB PO PRN (07:58)
[2023-12-27] MEDS: PANTOprazole 40 MG TAB PO SCH (08:49)
[2023-12-27] MEDS: SERTRALINE HCL 50 MG TABLET PO SCH (08:49)
[2023-12-27] MEDS ORDERED: SERTRALINE HCL 50 MG TABLET PO SCH (09:00)
--- OUTSIDE RECORDS SUMMARY | 2023-12-27 11:31 | External Medical Summary | Summary of Care ---
Author Name Unknown Organization [facility] Address [address] [place] [address] Phone [phone] Care Team Providers Care School Bus Driver/Teacher Assistant Name Role Phone Erin Pearson PA-C Primary Care Provider [phone] Reason for Visit * Reason Onset Date Comments Advice 12/22/[address] Silva in Encounter Details Date Type Department Care Team ([facility] st Contact Info) Description 12/22/2023 Telephone Gynecology/Obstetrics [facility] [address] [place] [id number] Nahum Euceda MD [address] [place] [phone] Advice (Rev with DR. Acevedo) Allergies Active Allergy Reactions Criticality Noted Date Comments Amoxicillin Hives 08/22/2014 Cephalosporins Hives 08/22/2014 Clindamycin Itching,Rash 03/10/2015 Propranolol Edema airway High 05/25/2015 throat symptoms documented as of this encounter (statuses as of 12/22/2023) Medications Medication Sig Dispensed Refills Start Date End Date Status Montelukast Sodium 10 MG Oral Tablet (Singulair) Take 1 Tablet by mouth in the morning. 90 Tablet 3 11/29/2022 Active 6.75-0.2 MG Oral Tablet Take by mouth. 0 Active Magnesium 30 MG Oral Tablet Take by mouth. 0 Active Metoclopramide HCl 10 MG Oral Tablet (Reglan) Take 1 Tablet by mouth in the morning and 1 Tablet at noon and 1 Tablet in the evening and 1 Tablet before bedtime. 30 Tablet 2 08/18/2023 Active Omeprazole 40 MG Oral Capsule Delayed Release (PriLOSEC)Indications: Gastric reflux TAKE 1 CAPSULE BY MOUTH EVERY MORNING. 1 hour before the first meal of the day 90 Capsule 1 10/22/2023 Active Ondansetron 4 MG Oral Tablet Disintegrating (Zofran)Indications:Pr egnancy related nausea, antepartum Place 1 Tablet on tongue every 8 hours as needed for Nausea. dissolve on tongue. 20 Tablet 0 10/22/2023 Active Sertraline HCl 50 MG Oral Tablet (Zoloft) 0 10/22/2023 Acti ve Sertraline HCl 25 MG Oral Tablet (Zoloft) 0 09/07/2023 Acti ve Breast Pump Dispense double electric breast pump. Dx Z39.1 1 Each 0 11/19/2023 Active documented as of this encounter (statuses as of 12/22/2023) Active Problems Problem Noted Date Diagnosed Date Clomid 10/22/2023 Supervision of other normal , antepartu m 08/05/2023 History of section complicating pregnan cy 07/04/2023 Gastric reflux 12/02/2022 Dysfunction of both eustachian tubes 01/29/2021 Seasonal allergies 01/29/2021 Body mass index (BMI) of 40.0 to 44.9 in adult 0 03/20/2020 Overview: Per Obesity protocol Advance directive declined by patient 01/24/2016 Overview: No, Advance Directive brochure offered, patient declined. Obesity, Class II, BMI 35-39.9, isolated (see ac tual BMI) 11/06/2015 Overview: 1. Recommend restricting weight gain during to 11-20 pounds. Consider referral for nutrition consult. 2. Recommend obtaining early Gestational Diabetes Mellitus screen and repeat again at 26-28 weeks if early screen is normal. 3. Recommend Maternal Medicine ultrasound for anatomy screen at 20 weeks and for growth every 4 weeks after 24 weeks. 4. For patients with Class 2 obesity, if patient is diagnosed with Gestational Diabetes Mellitus OR fetus is noted to be LGA, then recommend surveillance twice weekly to begin at 32 weeks and delivery by EDC. Migraine with aura and witho ut status migrainosus, not intractable 11/06/2015 Estimated Date of Delivery Comme nts Yes 12/26/2023 Based on Ultraso und documented as of this encounter (statuses as of 12/22/2023) Resolved Problems Problem Noted Date Diagnosed Date Resolved Date Low-lying placenta 07/09/2023 Overview: Ultrasound completed at 15 weeks d/t pt states told previously through ER low lying placenta. U/s 07/09 suggesting borderline low lying placenta 2 cm from os. Recommended pelvic rest, follow up with anatomy u/s. Placental problem suspected but not found 07/04/2023 10/22/2023 Encounter for supervision of normal first in second trimester 07/04/2023 10/22/2023 Tobacco use disorder 01/29/2021 022 Obesity in , antepartum 11/06/2015 10/22/2023 Headache in 11/06/20152020 Dichorionic diamniotic twin gestation 10/10/2015 05/15/2016 Overview: 1. Recommend early glucola and if normal repeat at 24-28 weeks. 2. Recommend Maternal Medicine ultrasound for anatomy at 18-20 weeks and for growth every 4 weeks after 24 weeks. If either fetus is <10 percentile or there is growth discordancy greater than 20%, then more frequent surveillance may be indicated. 3. If is uncomplicated, then no surveillance is indicated and recommend delivery at 38w0d to 38w6d. 4. Consider trial of labor if presenting fetus is cephalic and is the larger of the two babies. section is recommended for any other presentations/lie. 03/26 (32wk) Growth baby A: 1986g, B 2100g Encounter for supervision of other normal 10/06/2015 05/15/2016 Overview: 02/26/2016 Tdap Vaccine administered per clinic protocol. Pt given VIS(vaccine information sheet) Vandana Welch RN ICD-10 update of inactive term documented as of this encounter (statuses as of 12/22/2023) Immunizations Name Administration Dates Next Due DTaP Dipth/Tet/Acell Pertussis (Infanrix), Peds 09/09/1994,03/27/1993,01/19/1993,11/13 HPV Vaccine, 4-Valent 05/03/2008,12/31/2007,10/11 Hepatitis B, 0-19 yrs 06/25/1993,01/19/1993,1102/1992 Hepatitis B, 20+ yrs 04/05/2021,12/06/2020,10/04 Meningococcal Conjugate Vacc ine (Menactra/Menveo) 10/30/2007 PPD 10/11/2020, 0,06/26/2016,06/18,05/12/2015,05/19/2014,05/12/2014 Seasonal Influenza, PF, 6 M & above, IM , (FluLaval or Fluzone) 10/06/2023,09/25/2022,10/02/2020 Seasonal Influenza, Quadriva lent, No Preserve, IM 09/09/2015 Seasonal Influenza, Quadriva lent, No Preserve, Mdck 01/12/2019 Seasonal Influenza, Split, I IV3, With Preserve, Inj 08/22/2014,10/16/2011,10/09/2010,09/12,09/05/2008,10/30/2007,09/25/2005 ,08/22/2004 TDAP (age 10 and older)(Boostrix) 2022,02/26/2016,03/23/2014,12/12 documented as of this encounter Social History Tobacco Use Types Packs/Day Years Used Date Smoking Tobacco: Former Cigarettes Q uit: 08/22/2011 Smokeless Tobacco: Never Alcohol Use Standard Drinks/Week Comments Not Currently 0 (1 standard drink = 0.6 oz pur e alcohol) PHQ-2 Answer Date Recorded PHQ-2 Score 0 12/23/2019 Hunger Vital Sign Answer Date Recorded Within the past 12 months, y ou worried that your food would run out before you got the money to buy more. Never true 10/06/20 23 Within the past 12 months, t he food you bought just didn't last and you didn't have money to get more. Never true 10/06/2023 [place] Depression Scale Answer Date Recorded [place] Depression Scale Total 1 11/07/2023 The thought of harming myself has occurred to me . Never 11/07/2023 Estimated Date of Delivery Comme nts Yes 12/26/2023 Based on Ultraso und Sex and Gender Information Value Date Recorded Sex Assigned at Female 11/29/2022 4:22 PM EST Gender Identity Female 11/29/2022 4:22 PM EST Sexual Orientation Straight 11/29/2022 4: 22 PM EST Job Start Date Occupation Industry Not on file Not on file Not on file documented as of this encounter Miscellaneous Notes * Telephone Encounter - Valeri Novoa RN - 12/22/2023 4:[address] Acevedo, pt should go to L&D for eval. Pt is aware. L&D aware. Vielka at L&D is aware. * Telephone Encounter - Valeri Novoa RN - 12/22/2023 4:03 PM EST Pt is calling c/o back, hip, side and belly pain. The pain is constant but gets more intense. She denies any ROM. Denies any ROM. + FM. Unable to time it. She has been well hydrated. She has been resting. She did take tylenol and used heat. Rates it a 7 out of 10. Pt can be reached at [phone]. documented in this encounter Plan of Treatment Upcoming Encounters Date Type Department Care Team (Late st Contact Info) Description 12/24/2023 9:15 AM EST Office Visit Gynecology/Obstetrics Fina Burgos [address] [place] [id number] Parris Marcelino CRNP [address] [place] [phone] Lor Burgos Stress Tests Nanda [address] [place] [id number] Health Maintenance Due Date Last Done Comments COVID-19 Vaccine (#1) 03/13/1993 Depression Screening 12/23/2020 12/23/2019 HPV/Co-Test 2022 Cervical Cancer Screening 12/05/2023 Pap Smear 12/05/2023 12/05/2020, 11/11, 04/10/2017, Additional history exists DTaP,Tdap,and Td Vaccines (10 - Td or Tdap) 10/06/2033 10/06/2023, 02/26/2016, 03/23/2014, Additional history exists MENINGOCOCCAL (MENACTRA/MENVEO) Aged Out 10/30/2007, 10/30/2007 No longer eligibl e based on patient's age to complete this topic GARDASIL-HPV IMMUNIZATION SERIES Completed 05/03/2008, 12/31/2007, 10/30/2007 Hepatitis B Completed 04/05/2021, 11/11, 10/04/2020, Additional history exists Influenza Vaccine (FLU shot) Completed , 09/25/2022, 09/27/2021, Additional history exists Pneumococcal Vaccine: Pediatrics (0 to 5 Years) and At-Risk Patients (6 to 64 Years) Aged Out No longer eligible based on patient's age to complete this topic documented as of this encounter Medical Devices Not on filedocumented as of this encounter Additional Health Concerns Infection Onset Date Last Indicated Resolved Time ((Group A Strep) Strep pyogenes) 04/15/2022 02/29/20 23 documented as of this encounter Care Teams School Bus Driver/Teacher Assistant Relationship Specialty Start Date End Date Erin Pearson PA-C [address] [place] [address] PCP - General Physician Geospatial Information Scientist 03/03/23 documented as of this encounter
--- OUTSIDE RECORDS SUMMARY | 2023-12-27 11:31 | External Medical Summary | Summary of Care ---
Author Name Unknown Organization [facility] Address [address] [place] [address] Phone [phone] Care Team Providers Care Accounts Clerk Name Role Phone Erin Pearson PA-C Primary Care Provider [phone] Encounter Details Date Type Department Care Team (Late st Contact Info) Description 12/22/2023 Result Scan Unspecified Department Nahum Euceda MD [address] [place] [address] <No scans attached> Allergies Active Allergy Reactions Criticality Noted Date Comments Amoxicillin Hives 08/22/2014 Cephalosporins Hives 08/22/2014 Clindamycin Itching,Rash 03/10/2015 Propranolol Edema airway High 05/25/2015 throat symptoms documented as of this encounter (statuses as of 12/23/2023) Medications Medication Sig Dispensed Refills Start Date [...] as of this encounter (statuses as of 12/23/2023) Active Problems Problem Noted Date Diagnosed Date [...] as of this encounter (statuses as of 12/23/2023) Resolved Problems Problem Noted Date Diagnosed Date [...] section is recommended for any other presentations/lie. 517 (32wk) Growth baby A: 1986g, B 2100g Encounter for supervision of other normal 10/06/2015 05/15/2016 Overview: 02/26/2016 Tdap Vaccine administered per clinic protocol. Pt given VIS(vaccine information sheet) Vandana Welch RN ICD-10 update of inactive term documented as of this encounter (statuses as of 12/23/2023) Immunizations Name Administration Dates Next Due DTaP Dipth/Tet/Acell Pertussis (Infanrix), Peds 09/09/1994,03/27/1993,01/19/1993,11/13 HPV Vaccine, 4-Valent 05/03/2008,12/31/2007,10/11 Hepatitis B, 0-19 yrs 06/25/1993,01/19/1993,02/1992 Hepatitis B, 20+ yrs 04/05/2021,12/06/2020,10/04 Meningococcal Conjugate [...] money to get more. Never true 10/06/2023 Alpine Depression Scale Answer Date Recorded Alpine Depression Scale Total 1 11/07/2023 The thought [...] on file documented as of this encounter Plan of Treatment Upcoming Encounters Date Type Department Care Team (Late st Contact Info) Description 12/24/2023 9:15 AM EST Office Visit Gynecology/Obstetrics [facility] [address] [place] [address] Parris Marcelino CRNP [address] [place] [address] [place], Non Stress Tests [facility] [address] [place] [id number] Health Maintenance Due Date Last Done Comments [...] Not on filedocumented as of this encounter Procedures Procedure Name Priority Date/Time Associated Diagnosis Comments OUTSIDE LAB RESULTS 12/22/2023 documented in this encounter Results * OUTSIDE LAB RESULTS (12/22/2023) 12/22/2023 Nahum Bates MD LABORATORY documented in this encounter Additional Health Concerns Infection Onset Date Last Indicated Resolved Time ((Group A Strep) Strep pyogenes) 04/15/2022 02/29/20 documented as of this encounter Care Teams Accounts Clerk Relationship Specialty Start Date End Date Erin Pearson PA-C [address] [place] [address] PCP - General Physician [employer] Spr[employer] 03/03/23 documented as of this encounter
--- OUTSIDE RECORDS SUMMARY | 2023-12-27 11:31 | External Medical Summary | Summary of Care ---
Author Name Unknown Organization [facility] Address [address] [place] [address] Phone [phone] Care Team Providers Care Transportation Coordinator Name Role Phone Erin Pearson PA-C Primary Care Provider [phone] Reason for Visit * Reason Comments Return Visit Non Stress Test Encounter Details Date Type Department Care Team (Late st Contact Info) Description 12/24/2023 9:15 AM EST Office Visit Gynecology/Obstetric s [facility]ichel[facility] [address] [place] [address] Parris Marcelino CRNP [address] [place] [address] [facility] Non Stress Tests [facility] [address] [place] [address] Supervision of other normal , antepartum*; Obesity, Class II, BMI 35-39.9, isolated (see actual BMI); History of section complicating ; associated with use of clomiphene, currently in third trimester Allergies Active Allergy Reactions Criticality Noted Date Comments Amoxicillin Hives 08/22/2014 Cephalosporins Hives 08/22/2014 Clindamycin Itching,Rash 03/10/2015 Propranolol Edema airway High 05/25/2015 throat symptoms documented as of this encounter (statuses as of 12/24/2023) Medications Medication Sig Dispensed Refills Start Date [...] as of this encounter (statuses as of 12/24/2023) Active Problems Problem Noted Date Diagnosed Date [...] as of this encounter (statuses as of 12/24/2023) Resolved Problems Problem Noted Date Diagnosed Date [...] as of this encounter (statuses as of 12/24/2023) Immunizations Name Administration Dates Next Due DTaP Dipth/Tet/Acell Pertussis (Infanrix), Peds 09/09/1994,03/27/1993,01/19/1993,11/13 HPV Vaccine, 4-Valent 05/03/2008,12/31/2007,10/11 Hepatitis B, 0-19 yrs 06/25/1993,01/19/1993,02/1992 Hepatitis B, 20+ yrs 04/05/2021,12/06/2020,10/04 Meningococcal Conjugate Vacc ine (Menactra/Menveo) 10/30/2007 PPD 10/11/2020,,06/26/2016,06/18,05/12/2015,05/19/2014,05/12/2014 Seasonal Influenza, PF, 6 M & above, [...] money to get more. Never true 10/06/2023 Austin Depression Scale Answer Date Recorded Austin Depression Scale Total 1 11/07/2023 The thought [...] on file documented as of this encounter Last Filed Vital Signs Vital Sign Reading Time Taken Comments Blood Pressure 112/74 12/24/2023 9:02 AM EST Pulse - - Temperature - - Respiratory Rate - - Oxygen Saturation - - Inhaled Oxygen Concentration - - Weight 133.8 kg (295 lb) 12/24/2023 9:02 AM EST Height 177.8 cm (5' 10") 12/24/2023 9:02 AM EST Body Mass Index 42.33 12/24/2023 9:02 AM EST documented in this encounter Progress Notes * Parris Marcelino CRNP - 12/24/2023 9:52 AM EST 39w5d Was at L&D 2 days ago with back spasms. Feeling better now. Baby is active. No contractions, bleeding, or LOF. Has IOL Friday. ASSESSMENT assessment with Non-stress Test completed on 12/24/2023 at 39.5weeks gestation for indication of obesity heart baseline: 130 bpm Variability: Moderate Decelerations: absent Accelerations: present Contractions: None NST start time: 903 NST stop time: 929 NST strip reviewed, interpreted, and approved by OB provider, KETAN Ac . NST strip stored in clinic storage file [employer] Analyst Documentation Provider requested car pre cooler. Name of car pre cooler: Kari documented in this encounter Nursing Notes * Kari Bryson LPN - 12/24/2023 9:23 AM EST 39w5d ARSALANT, RUT At L+D 12/22. Would like cervical check/ membrane sweep today. documented in this encounter Plan of Treatment Health Maintenance Due Date Last Done Comments [...] Not on filedocumented as of this encounter Visit Diagnoses Diagnosis Supervision of other normal , antepartum- Primary Obesity, Class II, BMI 35-39.9, isolated (see actual BMI) Morbid obesity History of section complicating Previous delivery, unspecified as to episode of care or not applicable associated with use of clomiphene, currently in third trimester documented in this encounter Additional Health Concerns Infection Onset Date Last Indicated Resolved Time ((Group A Strep) Strep pyogenes) 04/15/2022 02/29/20 documented as of this encounter Care Teams Transportation Coordinator Relationship Specialty Start Date End Date Erin Pearson PA-C [address] [place] [id number] PCP - General Physician Sensitizer 03/03/23 documented as of this encounter
[2023-12-27] MEDS: ACETAMINOPHEN 325 MG TAB PO PRN (14:29)
[2023-12-27] MEDS: MONTELUKAST SODIUM 10 MG TABLET PO SCH (21:20)
[2023-12-28 07:25] LABS: Hematocrit (blood only) 37.9 % (37.0-47.0); Hemoglobin 12.8 g/dl (12.0-16.0); Mean Corpuscular Hemoglobin 29.2 pg (25.0-34.0); Mean Corpuscular Hgb Conc 33.8 g/dL (32.0-36.0); Mean Corpuscular Volume 86.5 fL (80.0-100.0); Mean Platelet Volume 11.2 fL (9.4-12.4); Platelet Count 162 K/uL (130-400); RDW Coefficient of Variation 13.3 % (11.5-14.5); Red Blood Count 4.38 M/uL (4.20-5.40); White Blood Count 12.49 K/ul (4.8-10.8)
--- NOTE | 2023-12-28 07:57 | Obstetrical Progress Note ---
Date of Service December 28, 2023 Assessment & Plan (1) Normal course: PPD #1 pt doing well d/c home with instructions Subjective Ambulation: ambulating normally Voiding: no voiding problems Passing Gas:: Yes Diet Tolerance:: regular diet Lochia:: Small Feeding Type:: breast feeding Review of Systems All systems reviewed & are unremarkable except as noted in HPI & below Physical Exam Constitutional WD/WN, vitals as above well developed and well nourished Eyes PERRL, conjunctivae normal, anicteric sclerae Neck trachea midline, no thyromegaly Respiratory normal respiratory effort, lungs clear to auscultation Auscultation: no crackles, no rales and no wheezes Cardiovascular RRR, no murmur, no edema Gastrointestinal (Abdomen) normal bowel sounds, soft, nontender, no hepatosplenomegaly Uterus is below umbilicus Musculoskeletal no cyanosis or clubbing, extremities motor strength 5/5 Skin no rashes, warm and dry Neurologic patellar DTR's 2+ bilat, sensation intact Psychiatric A+Ox3, euthymic affect Genitourinary normal external appearance Results & Data Vital Signs (Past 12 Hours) Vital Signs Temp Pulse Resp BP Pulse Ox O2 Del Method 12/28/23 05:50 36.8 C 82 18 111/80 Room Air 12/27/23 23:50 36.4 C L 78 18 126/81 97 Room Air 12/27/23 21:45 36.4 C L 86 18 118/92 98 Room Air
[2023-12-28] MEDS ORDERED: bisacodyL 5 MG TABEC PO SCH (20:00)
== END 2023-12-28 12:00 | disposition home health service (06) | DRG 807 ==
LOC: OPB 18:43 → 4S1 18:43 → 4E1 12-27 05:45